=== PATIENT | female | born 1985 | race Caucasian/White ===

== ENCOUNTER 2020-09-21 15:56 | Emergency (ER) | payer BC ==
--- NOTE | 2020-09-21 16:21 | EDM.PDOC ---
ED HPI GENERAL MEDICAL PROBLEM - General Chief Complaint: Headache Stated Complaint: MIGRAINE Time Seen by Provider: 09/21/20 16:20 - History of Present Illness INITIAL COMMENTS - FREE TEXT/NARRATIVE: 35-year-old female presents the emergency room with a migraine headache. This started and has not improved. She has tried essential oils ice to her head heating packs to her neck with no improvement. She has no nausea no vomiting. She has significant photophobia with this. This is a little different than her regular headaches and that it really has not gotten any better. Patient used to use Imitrex but it stopped working. Patient denies any fevers or chills no significant neck tightness. She denies any other symptoms at this point. Headache Pain Score (Numeric/FACES): 7 - Related Data Allergies Allergy/AdvReac Type Severity Reaction Status Date / Time Penicillins Allergy Other Verified 09/21/20 16:04 Home Meds: Home Meds . [No Known Home Meds] 09/21/20 [History] Past Medical History Cardiovascular History: Reports: Other (See Below) Other Cardiovascular History: Raynaud's Social & Family History - Tobacco Use Tobacco Use Status *Q: Never Tobacco User Second Hand Smoke Exposure: No - Caffeine Use Caffeine Use: Reports: Coffee - Recreational Drug Use Recreational Drug Use: No ED ROS GENERAL - Review of Systems Review Of Systems: See Below Constitutional: Reports: No Symptoms HEENT: Reports: Other (Photophobia). Denies: Ear Pain, Eye Pain, Rhinitis, Vision Change Respiratory: Reports: No Symptoms Cardiovascular: Reports: No Symptoms GI/Abdominal: Reports: Nausea. Denies: Abdominal Pain, Constipation, Diarrhea, Vomiting : Reports: No Symptoms Musculoskeletal: Reports: Other (Neck discomfort along the base of the skull) Skin: Reports: No Symptoms Neurological: Reports: Headache, Change in Speech. Denies: Confusion, Dizziness, Numbness, Syncope - Physical Exam Exam: See Below Exam Limited By: No Limitations General Appearance: Alert, No Apparent Distress, Other (She is photophobic and enjoys the lights off in the room) Eye Exam: Bilateral Eye: Normal Inspection, PERRL Ears: Normal External Exam, Normal Canal, Hearing Grossly Normal, Normal TMs Nose: Normal Inspection, Normal Mucosa, No Blood Throat/Mouth: Normal Inspection, Normal Lips, Normal Teeth, Normal Gums, Normal Oropharynx, Normal Voice, No Airway Compromise Head Exam: Atraumatic, Normocephalic Neck: Normal Inspection, Supple, Non-Tender, Full Range of Motion. No: Lymphadenopathy (L), Lymphadenopathy (R) Respiratory/Chest: No Respiratory Distress, Lungs Clear, Normal Breath Sounds Cardiovascular: Regular Rate, Rhythm, No Edema, No Murmur Neuro Exam (Abbreviated): Alert, Oriented, No Motor/Sensory Deficits Course - Vital Signs Last Recorded V/S: Last Vital Signs Temp 36.1 C 09/21/20 16:02 Pulse 62 09/21/20 16:02 Resp 16 09/21/20 16:02 BP 132/88 09/21/20 16:02 Pulse Ox 99 09/21/20 16:02 - Orders/Labs/Meds Meds: Medications Discontinued Medications Generic Name Dose Route Start Last Admin Trade Name Christopher PRN Reason Stop Dose Admin Diphenhydramine HCl 50 mg 09/21/20 17:05 09/21/20 17:35 Benadryl IVPUSH 09/21/20 17:06 50 mg ONETIME ONE Administration Lactated Ringer's 1,000 mls @ 999 mls/hr 09/21/20 17:05 09/21/20 17:35 Ringers, Lactated IV 09/21/20 18:05 999 mls/hr .BOLUS ONE Administration Ondansetron HCl 4 mg 09/21/20 17:05 09/21/20 17:35 Zofran IVPUSH 09/21/20 17:06 4 mg ONETIME ONE Administration - Re-Assessments/Exams Free Text/Narrative Re-Assessment/Exam: 09/21/20 18:49 Is doing much better after receiving a liter of fluid IV Zofran and Benadryl. Pain is much better not completely resolved but the patient think she will do fine and would like to be discharged home to get some rest. Departure - Departure Time of Disposition: 18:49 Disposition: Home, Self-Care 01 Clinical Impression: Migraine - Discharge Information Referrals: Minerva Romero [employer] [Primary Care Provider] - Forms: ED Department Discharge Additional Instructions: Return to the emergency room with any questions problems or worsening symptoms. Go straight home and get some rest. Sepsis Event Note (ED) - Evaluation Sepsis Screening Result: No Definite Risk - Focused Exam Vital Signs: Vital Signs Temp Pulse Resp BP Pulse Ox 09/21/20 16:02 36.1 C 62 16 132/88 99
[2020-09-21] MEDS ORDERED: Ondansetron 4 MG/2 ML SDV IVPUSH ONE (17:05)
[2020-09-21] MEDS ORDERED: diphenhydrAMINE 50 MG/ML SDV IVPUSH ONE (17:05)
[2020-09-21] MEDS ORDERED: Lactated Ringers 1,000 ML IV ONE (17:05)
== END 2020-09-21 19:07 | disposition home or self-care (01) ==
LOC: JD.ED 15:56
DX: G43.909 Migraine, unspecified, not intractable, without status migrainosus (principal); Z88.0 Allergy status to penicillin
CPT/HCPCS: 96374; 96375; 99283; J1200; J2405; J7120